=== PATIENT | female | born 1960 | race African-American/Black ===

== ENCOUNTER → 2023-04-27 | Outpatient (CLI) | payer OTHER | END | disposition home or self-care (01) | LOC: CT 07:34 | PROVIDERS: ATTEND Internal Medicine | DX: K76.0 Fatty (change of) liver, not elsewhere classified (principal); N28.1 Cyst of kidney, acquired; J84.10 Pulmonary fibrosis, unspecified; R10.9 Unspecified abdominal pain | CPT/HCPCS: 74176 ==